=== PATIENT | female | born 2000 | race Caucasian/White ===

== ENCOUNTER 2020-07-16 13:01 | Emergency (ER) | payer MEDICAID ==
[~2020-07-16] VITALS: Ht 167.6 cm; Wt 72.7 kg
[2020-07-16 13:04] VITALS: BP 117/72
== END 2020-07-16 14:00 | disposition left against medical advice (07) ==
LOC: EMS 13:13
DX: R53.1 Weakness (principal); Z53.21 Procedure and treatment not carried out due to patient leaving prior to being seen by health care provider